=== PATIENT | female | born 1945 | race Caucasian/White ===

== ENCOUNTER 2019-07-27 07:30 | Outpatient (CLI) | payer MEDICARE, SELFPAY ==
[2019-07-27 08:09] LABS: Creatinine Urine 178.93 mg/dL (40-278)
[2019-07-27 08:10] LABS: MALB Creatinine Ratio 31.4 mg/g (0-30); Microalbumin Urine Random 56.3 mg/L
[2019-07-27 08:12] LABS: Hemoglobin A1C 7.7 % (<5.7)
[2019-07-27 08:41] LABS: Alanine Aminotransferase 24 U/L (14-59); Albumin Level 3.5 g/dL (3.4-5.0); Alkaline Phosphatase 92 U/L (46-116); Aspartate Amino Transferase 22 U/L (15-37); Bilirubin,Total 0.6 mg/dL (0.00-1.00); Blood Urea Nitrogen 14 mg/dL (7-18); Carbon Dioxide 40 mmol/L (21-32); Chloride 91 mmol/L (98-108); Cholesterol 154 mg/dL (0-200); Estimated Glomerular Filt Rate > 60; Glucose 220 mg/dL (70-99); HDL Direct 62 mg/dL (40-60); LDL Cholesterol Calculated 79 mg/dL (<130); Osmolality Calculated 287 mOsm/kg (285-295); Sodium 135 mmol/L (136-145); Total Protein 7.3 g/dL (6.4-8.2); Triglycerides 64 mg/dL (0-150)
== END 2019-07-27 07:31 | disposition home or self-care (01) ==
LOC: CHSLAB 07:36
PROVIDERS: PCP Internal Medicine; Visit Provider Internal Medicine
DX: E11.59 Type 2 diabetes mellitus with other circulatory complications (principal); I10 Essential (primary) hypertension; Z00.00 Encounter for general adult medical examination without abnormal findings
CPT/HCPCS: 36415; 80053; 80061; 82043; 83036